=== PATIENT | female | born 1965 | race Caucasian/White ===

== ENCOUNTER 2022-04-19 08:00 | Emergency (ER) | payer SELFPAY ==
[2022-04-19] MEDS ORDERED: Sodium Chloride 0.9% 10 ML Syringe IV PRN (16:10)
[2022-04-19] MEDS ORDERED: Nitroglycerin 0.4 MG Tab.SL SL ONE (18:18)
[2022-04-19] MEDS ORDERED: Sodium Chloride 0.9% 1,000 ML IV ONE (18:40)
[2022-04-19] MEDS ORDERED: Tenecteplase 50 MG Kit IV ONE (18:40)
[2022-04-19] MEDS ORDERED: Clopidogrel 75 MG Tab PO ONE (18:42)
[2022-05-17 15:39] LABS: SODIUM,NA 139 mmol/L (136-145)
[2022-05-17 15:40] LABS: ANION GAP 18.1 mmol/L (5-15); CHLORIDE,CL 102 mmol/L (98-115); ESTIMATED GFR 43 mL/min (>=60)
[2022-05-20 11:18] LABS: PTT,PARTIAL THROMBOPLSTIN TIME 22.1 SEC (22.8-31.4)
== END 2022-04-19 18:55 ==
LOC: KA.ED 08:00
DX: I21.3 ST elevation (STEMI) myocardial infarction of unspecified site (principal); Z88.6 Allergy status to analgesic agent; Z79.899 Other long term (current) drug therapy
CPT/HCPCS: 36415; 71045; 80053; 84484; 85025; 85379; 85730; 86140; 93005; 96374; 96375; 99285; A9270; J3101; J7030

== ENCOUNTER 2025-02-03 09:10 | Emergency (ER) | payer BC ==
[2025-02-03] MEDS: methylPREDNISolone Sodium Succinate 125 MG/2 ML SDV IVPUSH ONE (10:09)
== END 2025-02-03 10:30 | disposition home or self-care (01) ==
LOC: KA.ED 09:10
DX: M51.369 Other intervertebral disc degeneration, lumbar region without mention of lumbar back pain or lower extremity pain (principal); Z88.2 Allergy status to sulfonamides; Z88.5 Allergy status to narcotic agent; Z88.8 Allergy status to other drugs, medicaments and biological substances; Z79.82 Long term (current) use of aspirin; Z79.899 Other long term (current) drug therapy; Z87.891 Personal history of nicotine dependence
CPT/HCPCS: 96374; 99283; 99283-25; A9270-GY; J2919